=== PATIENT | male | born 1995 | race Hispanic/Latino ===

== ENCOUNTER 2021-01-04 15:25 | Emergency (ER) | payer SELFPAY ==
[2021-01-04 15:35] VITALS: BP 102/53; PULSE 99; RESP 16; TEMP 37; O2SAT 98
--- NOTE | 2021-01-04 17:23 | ED.SKABFB ---
HPI - Skin/Abscess/Foreign Bdy General Chief complaint: Skin/Abscess/Foreign Body Stated complaint: lower back pain Time Seen by Provider: 01/04/21 16:45 Source: patient and family Mode of arrival: ambulatory Limitations: language barrier (Nephew is interpreting) History of Present Illness HPI narrative: This is a 25-year-old male that presents to the emergency department for an area of redness and swelling above his buttock noted over the last 2 days. Reports the area is painful. Denies fever or drainage from the area. Related Data Allergies Allergy/AdvReac Type Severity Reaction Status Date / Time No Known Allergies Allergy Verified 01/04/21 15:40 Review of Systems Review of Systems: CONSTITUTIONAL: Denies fever SKIN: Reports redness and swelling All systems reviewed & are unremarkable except as noted in HPI and below PMFSH Past Medical History Medical History (Updated 01/04/21 @ 18:52 by Sveta Stovall PA-C) No active medical problems Social History Social History (Updated 01/04/21 @ 17:30 by Sveta Stovall PA-C) Substance use: never Exam Narrative: GENERAL: Well-appearing, well-nourished, and in no acute distress. HEAD: Normocephalic, atraumatic. EYES: EOMI. BACK: Moderate area of erythema and induration to the gluteal cleft with central fluctuance EXTREMITIES: Normal range of motion. No edema. SKIN: Warm, dry, no rash. NEURO: No focal deficits. Alert and oriented x3. PSYCH: Normal mood and affect Course Vital Signs Vital signs: Vital Signs Temperature 98.6 F 01/04/21 15:35 Pulse Rate 99 01/04/21 15:35 Respiratory Rate 16 01/04/21 15:35 Blood Pressure 102/53 L 01/04/21 15:35 Pulse Oximetry 98 01/04/21 15:35 Temperature 98.6 F 01/04/21 15:35 Pulse Rate 99 01/04/21 15:35 Respiratory Rate 16 01/04/21 15:35 Blood Pressure 102/53 L 01/04/21 15:35 Pulse Oximetry 98 01/04/21 15:35 Procedures Abscess I/D back: Date of Incision: 01/04/21 Time of Incision: 18:40 Local Anesthetic: lidocaine 1% and with epi Amount of anesthesia used (mL): 4 Technique: incised with #11 blade Irrigation: Yes Packing used?: iodoform I&D Results: Pus and Blood MDM - Skin/Abscess/Foreign Bdy MDM Narrative Medical decision making narrative: Patient presents the emergency department for pilonidal abscess. This was drained in the ED. Patient will be started on oral antibiotics. He is to follow-up with primary care doctor. He was given warnings to return the ER Critical Care Time Critical Care Time Critical Care Time: No Discharge Plan Discharge Clinical Impression: Abscess of skin or subcutaneous tissue Qualifiers: Site of cutaneous abscess: buttock Qualified Code(s): L02.31 - Cutaneous abscess of buttock Patient Disposition: Home, Self-Care Condition: Stable Instructions: Pilonidal Cyst (ED) Additional Instructions: Return if symptoms worsen or concerns: any increase in redness, swelling, pain, or fever over 101 Take antibiotics as directed. Clean wound with mild soapy water. Apply antibiotic ointment and clean dressing at least three times daily. Warm compresses 3 times a day for 30 minutes each Follow up with primary care in the next 2-3 days for re-evaluation and packing removal Patient Language: Polish Prescriptions: New cephalexin 500 mg capsule 500 mg PO Q8H 7 Days Qty: 21 RF: 0 metronidazole 500 mg tablet 500 mg PO Q8H 7 Days Qty: 21 RF: 0 Follow-up/Referrals: PHYSICIAN,[employer] REPRESENTATIVE AND ASSESSOR [Primary Care Provider] - Favio Smith MD [Physician] - 3 Days
[2021-01-04] MEDS: metroNIDAZOLE 250 MG TABLET 500 MG PO (19:00)
[2021-01-04] MEDS: CEPHALEXIN 500 MG CAPSULE PO (19:00)
--- NOTE | 2021-01-04 19:00 | PC.NURSE ---
Has 3 large hives to right forearm, denies itching. Romulo Kwok PA-C notified and orders received.
[2021-01-04] MEDS: FAMOTIDINE 20 MG TABLET PO (19:15)
[2021-01-04] MEDS: diphenhydrAMINE HCl CAP 25 MG CAPSULE PO (19:20)
[2021-01-04 19:40] VITALS: BP 100/48; PULSE 92; RESP 20; O2SAT 100
== END 2021-01-04 19:40 | disposition home or self-care (01) ==
PROVIDERS: Emergency Provider Emergency Medicine
DX: L02.31 Cutaneous abscess of buttock (principal)
CPT/HCPCS: 10061; 99283; A9270